=== PATIENT | male | born 1960 | race Caucasian/White ===

== ENCOUNTER 2021-06-14 12:16 | Inpatient (IN) ==
[2021-06-14 12:40] LABS: Basophils # (auto) 0.02 K/uL (0-0.2); Basophils % (auto) 0.2 %; Eosinophils # (auto) 0.07 K/uL (0-0.5); Eosinophils % (auto) 0.8 %; Hematocrit (blood only) 43.6 % (42-52); Hemoglobin 14.6 g/dL (14.0-18.0); Immature Granulocytes # (auto) 0.04 K/uL (0.00-0.02); Immature Granulocytes % (auto) 0.4 %; Lymphocytes # (auto) 2.95 K/uL (1.2-3.4); Lymphocytes % (auto) 32.6 %; Mean Corpuscular Hemoglobin 30.2 pg (25-34); Mean Corpuscular Hgb Conc 33.5 g/dL (32-36); Mean Corpuscular Volume 90.1 fL (80-100); Mean Platelet Volume 9.4 fL (7.4-10.4); Monocytes % (auto) 7.7 %; Neutrophils # (auto) 5.26 K/uL (1.4-6.5); Neutrophils % (auto) 58.3 %; Platelet Count 253 K/uL (130-400); RDW Coefficient of Variation 13.7 % (11.5-14.5); RDW Standard Deviation 45.1 fL (36.4-46.3); Red Blood Count 4.84 M/uL (4.7-6.1); White Blood Count 9.04 K/uL (4.8-10.8)
[2021-06-14 12:53] LABS: INR 1.1 (0.9-1.1); Partial Thromboplastin Ratio 0.9; Partial Thromboplastin Time 25.9 Seconds (21.0-31.0); Prothrombin Time 12.1 Seconds (9.0-12.0)
[2021-06-14 13:00] LABS: Alanine Aminotransferase 53 U/L (7-52); Albumin Globulin Ratio 1.8 (0.9-2); Albumin Level 4.3 gm/dl (3.4-5.0); Alkaline Phosphatase 93 U/L (34-104); Anion Gap 8 (3-11); Aspartate Aminotransferase 42 U/L (13-39); BUN Creatinine Ratio 20.3 (10-20); Bilirubin,Total 1.1 mg/dl (0.2-1.0); Blood Urea Nitrogen 15 mg/dl (6-23); Carbon Dioxide 24 mmol/L (21-32); Chloride 107 mmol/L (98-107); Globulin 2.4 gm/dl (2.5-4.0); Glucose 101 mg/dl (70-99(Fasting)); Potassium 3.7 mmol/L (3.5-5.1); Sodium 139 mmol/L (136-145); Total Protein 6.7 gm/dl (6.0-8.3)
[2021-06-14 13:02] LABS: Troponin I < 0.03 ng/ml (0-0.04)
[2021-06-14] MEDS ORDERED: METOPROLOL TARTRATE 1 MG/ML VIAL IV PRN (13:45)
--- NOTE | 2021-06-14 13:54 | XRay Report ---
TWO VIEW CHEST CLINICAL HISTORY: Atypical chest pain. FINDINGS: PA and lateral chest radiographs are compared to study dated 05/16/2014. The heart is enlarg ed. Interstitial thickening and airspace opacities are seen throughout both lungs. There is no large pleural effusion or pneumothorax. The skeletal structures are osteopenic. The bony thorax appears int act. IMPRESSION: 1. Interstitial thickening and airspace opacities are seen throughout both lungs, suggesting an infec tious/inflammatory pneumonitis. Clinical correlation will be required and radiographic follow-up to [facility] is recommended. 2. Cardiomegaly. ACT 112: Negative or not required by law. Electronically signed by: Jef Arellano M.D. 06/14/2021 1:52 PM
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
[2021-06-14] MEDS ORDERED: ONDANSETRON INJ 2 MG/ML 2 ML VIAL IV PRN (16:07)
[2021-06-14] MEDS ORDERED: POTASSIUM CHLORIDE CRTAB 20 MEQ TABCR PO STA (16:38)
[2021-06-14] MEDS ORDERED: MAGNESIUM SULFATE / D5W 1 GM/100 ML BAG IV ONE (17:00)
[2021-06-14] MEDS ORDERED: METOPROLOL TARTRATE 25 MG TAB PO SCH (17:00)
[2021-06-14] MEDS: FUROSEMIDE INJ 20 MG/2 ML VIAL IV SCH (17:49)
[2021-06-14] MEDS ORDERED: ALBUMIN 25% 12.5 GM/50 ML VIAL IV ONE (19:45)
[2021-06-14] MEDS ORDERED: DIGOXIN 250 MCG in SYRINGE 9 ML IV ONE (20:00)
[2021-06-14] MEDS: METOPROLOL TARTRATE 25 MG TAB PO SCH (20:06)
[2021-06-14] MEDS: HEPARIN SOD 5,000 UNIT/0.5 ML VIAL SQ SCH (20:06)
--- NOTE | 2021-06-14 21:38 | Electrocardiogram Report ---
Test Reason : Blood Pressure : / mmHG Vent. Rate : 130 BPM Atrial Rate : 107 BPM P-R Int : 000 ms QRS Dur : 114 ms QT Int : 348 ms P-R-T Axes : 000 056 -22 degrees QTc Int : 512 ms Atrial fibrillation with rapid ventricular response with premature ventricular or aberrantly conducte d complexes Right bundle branch block Inferior infarct , age undetermined Abnormal ECG No previous ECGs available Confirmed by Magno Lee ([id number]) on 06/14/2021 9:38:40 PM Referred By: Confirmed By:Magno Lee
[2021-06-15 06:15] LABS: Hematocrit (blood only) 41.3 % (42-52); Mean Corpuscular Hemoglobin 30.5 pg (25-34); Mean Corpuscular Hgb Conc 33.9 g/dL (32-36); Mean Platelet Volume 9.4 fL (7.4-10.4); Platelet Count 229 K/uL (130-400); RDW Coefficient of Variation 13.4 % (11.5-14.5); RDW Standard Deviation 44.2 fL (36.4-46.3); Red Blood Count 4.59 M/uL (4.7-6.1)
[2021-06-15 06:39] LABS: Albumin Globulin Ratio 1.9 (0.9-2); BUN Creatinine Ratio 22.1 (10-20); Bilirubin,Total 1.2 mg/dl (0.2-1.0); Calcium 8.2 mg/dl (8.5-10.1); Chol HDL Ratio 3.6 (0-5); Creatinine Clr Calc Pharmacy 86.5 ml/min; Est GFR (African American) 115.1 ml/min; Est GFR (Non-African American) 99.3 ml/min; Globulin 2.1 gm/dl (2.5-4.0); Magnesium 2.2 mg/dl (1.7-2.4); Phosphorus 3.1 mg/dl (2.5-4.9); Potassium 3.8 mmol/L (3.5-5.1); Total Protein 6.1 gm/dl (6.0-8.3)
[2021-06-15 07:57] LABS: Estimated Average Glucose 117 mg/dl; Hemoglobin A1C 5.7 % (4.5-5.6)
[2021-06-15] MEDS ORDERED: STAT IV Infusion **Titration per Protocol STA (08:07)
[2021-06-15] MEDS: HEPARIN SOD 5,000 UNIT/0.5 ML VIAL SQ SCH (08:12)
[2021-06-15] MEDS: METOPROLOL TARTRATE 25 MG TAB PO SCH (08:12)
[2021-06-15] MEDS: MAGNESIUM OXIDE 400 MG TAB PO SCH (08:13)
[2021-06-15] MEDS ORDERED: dilTIAZem HCL 125 MG in DEXTROSE 5% 100 ML IV SCH (08:30)
[2021-06-15] MEDS ORDERED: POTASSIUM CHLORIDE CRTAB 20 MEQ TABCR PO SCH (09:00)
[2021-06-15] MEDS: FUROSEMIDE INJ 20 MG/2 ML VIAL IV SCH ×2 (09:56→17:15)
[2021-06-15] MEDS: POTASSIUM CHLORIDE CRTAB 20 MEQ TABCR PO SCH ×3 (09:57→20:48)
[2021-06-15] MEDS ORDERED: METOPROLOL TARTRATE 25 MG TAB PO STA (11:55)
--- NOTE | 2021-06-15 12:02 | Cardiology Progress Note ---
Date of Service June 15, 2021 Assessment & Plan (1) Atrial fibrillation with RVR: (2) Infiltrative cardiomyopathy: Plan: The patient remains in atrial fibrillation with high heart rates. I will increase his metoprolol to 50 mg twice daily. Labs are still pending. Admission and Anticipated Discharge Date Admission Date: June 14, 2021 Subjective The patient states he feels better since being admitted to the hospital. Review of Systems Review of Systems: Review of Systems: See HPI for pertinent positives. All other 10 point review of systems are negative. Physical Exam Physical Exam: General: no acute distress and stated age Head: normocephalic, no masses, lesions, tenderness or abnormalities Eyes: conjunctiva are pink and non-injected, sclera clear Neck: supple, no adenopathy, no bruits, normal jugular venous pulse, no hepatojugular reflux Chest: normal shape and normal respiratory effort Lungs: clear to auscultation and percussion Cardiac Exam: - irregular rate & rhythm, no murmurs gallops or rubs - normal S1, normal S2 Pulses: 2(+) throughout Abdomen: abdomen soft, non-tender, no abnormal masses and no hepatosplenomegaly Musculoskeletal: no gait disturbance, no joint inflammation, no deforming arthritis Extremities: no edema and no cyanosis Neuro: grossly normal exam Results & Data ([facility]) Vital Signs (Past 12 Hours) Vital Signs Temp Pulse Resp BP BP Pulse Ox 06/15/21 11:52 36.7 C 84 18 112/74 93 06/15/21 07:57 36.8 C 75 18 130/89 95 06/15/21 03:54 36.9 C 109 H 18 124/80 95 Laboratory Results Laboratory Results - last 24 hr 06/14/21 06/14/21 06/14/21 12:30 12:30 12:30 WBC 9.04 RBC 4.84 Hgb 14.6 Hct 43.6 MCV 90.1 MCH 30.2 MCHC 33.5 RDW Std Deviation 45.1 RDW Coeff of Noni 13.7 Plt Count 253 MPV 9.4 Immature Gran % (Auto) 0.4 Neut % (Auto) 58.3 Lymph % (Auto) 32.6 [place] % (Auto) 7.7 Eos % (Auto) 0.8 Baso % (Auto) 0.2 Neut # (Auto) 5.26 Lymph # (Auto) 2.95 [place] # (Auto) 0.70 H Eos # (Auto) 0.07 Baso # (Auto) 0.02 Immature Gran # (Auto) 0.04 H PT 12.1 H INR 1.1 APTT 25.9 PTT Ratio 0.9 Sodium 139 Potassium 3.7 Chloride 107 Carbon Dioxide 24 Anion Gap 8 BUN 15 Creatinine 0.74 Est Cr Clr Drug Dosing Not Reportable Est GFR ( Amer) 117.0 Est GFR (Non-Af Amer) 101.0 BUN/Creatinine Ratio 20.3 H Glucose 101 H Estimat Average Glucose Hemoglobin A1c Calcium 9.0 Phosphorus Magnesium Total Bilirubin 1.1 H AST 42 H ALT 53 H Alkaline Phosphatase 93 Troponin I < 0.03 B-Natriuretic Peptide Total Protein 6.7 Total Protein (PEP) Albumin 4.3 Albumin (PEP) Globulin 2.4 L Albumin/Globulin Ratio 1.8 Ecxgv-3-Vwojaalri Iiixq-9-Ehizzjspe Hvsp-3-Ioqbawra Beav-5-Qiljhove Gamma Globulins Monoclonal Peak 3 Ser Monoclonl Protein Ser Monoclonal Prot 2 PEP Interpretation Triglycerides Cholesterol LDL Cholesterol, Calc VLDL Cholesterol, Calc HDL Cholesterol Cholesterol/HDL Ratio TSH Free [place] LC, Quant Free Lambda LC, Quant Free [place]/Lambda Ratio SARS-CoV-2, RNA, NAAT 06/14/21 06/14/21 06/14/21 13:57 13:57 13:57 WBC RBC Hgb Hct MCV MCH MCHC RDW Std Deviation RDW Coeff of Noni Plt Count MPV Immature Gran % (Auto) Neut % (Auto) Lymph % (Auto) [place] % (Auto) Eos % (Auto) Baso % (Auto) Neut # (Auto) Lymph # (Auto) [place] # (Auto) Eos # (Auto) Baso # (Auto) Immature Gran # (Auto) PT INR APTT PTT Ratio Sodium Potassium Chloride Carbon Dioxide Anion Gap BUN Creatinine Est Cr Clr Drug Dosing Est GFR ( Amer) Est GFR (Non-Af Amer) BUN/Creatinine Ratio Glucose Estimat Average Glucose Hemoglobin A1c Calcium Phosphorus Magnesium 1.9 Total Bilirubin AST ALT Alkaline Phosphatase Troponin I B-Natriuretic Peptide 333 H Total Protein Total Protein (PEP) Albumin Albumin (PEP) Globulin Albumin/Globulin Ratio Trzjh-5-Sjrkpstwc Keday-3-Hxksoybmt Wtvt-8-Fonsafwr Pgdh-7-Wvgtcmmo Gamma Globulins Monoclonal Peak 3 Ser Monoclonl Protein Ser Monoclonal Prot 2 PEP Interpretation Triglycerides Cholesterol LDL Cholesterol, Calc VLDL Cholesterol, Calc HDL Cholesterol Cholesterol/HDL Ratio TSH 1.861 Free [place] LC, Quant Free Lambda LC, Quant Free [place]/Lambda Ratio SARS-CoV-2, RNA, NAAT 06/14/21 06/14/21 06/15/21 13:57 14:46 05:52 WBC 6.90 RBC 4.59 L Hgb 14.0 Hct 41.3 L MCV 90.0 MCH 30.5 MCHC 33.9 RDW Std Deviation 44.2 RDW Coeff of Noni 13.4 Plt Count 229 MPV 9.4 Immature Gran % (Auto) Neut % (Auto) Lymph % (Auto) [place] % (Auto) Eos % (Auto) Baso % (Auto) Neut # (Auto) Lymph # (Auto) [place] # (Auto) Eos # (Auto) Baso # (Auto) Immature Gran # (Auto) PT INR APTT PTT Ratio Sodium Potassium Chloride Carbon Dioxide Anion Gap BUN Creatinine Est Cr Clr Drug Dosing Est GFR ( Amer) Est GFR (Non-Af Amer) BUN/Creatinine Ratio Glucose Estimat Average Glucose Hemoglobin A1c Calcium Phosphorus Magnesium Total Bilirubin AST ALT Alkaline Phosphatase Troponin I B-Natriuretic Peptide Total Protein Total Protein (PEP) Pending Albumin Albumin (PEP) Pending Globulin Albumin/Globulin Ratio Eylpf-3-Wauxujqrh Pending Tgpio-3-Jngohzyet Pending Knrg-4-Skrpacbw Pending Imyw-8-Surbisjq Pending Gamma Globulins Pending Monoclonal Peak 3 Pending Ser Monoclonl Protein Pending Ser Monoclonal Prot 2 Pending PEP Interpretation Pending Triglycerides Cholesterol LDL Cholesterol, Calc VLDL Cholesterol, Calc HDL Cholesterol Cholesterol/HDL Ratio TSH Free [place] LC, Quant Pending Free Lambda LC, Quant Pending Free [place]/Lambda Ratio Pending SARS-CoV-2, RNA, NAAT NEGATIVE 06/15/21 06/15/21 05:52 05:52 WBC RBC Hgb Hct MCV MCH MCHC RDW Std Deviation RDW Coeff of Noni Plt Count MPV Immature Gran % (Auto) Neut % (Auto) Lymph % (Auto) [place] % (Auto) Eos % (Auto) Baso % (Auto) Neut # (Auto) Lymph # (Auto) [place] # (Auto) Eos # (Auto) Baso # (Auto) Immature Gran # (Auto) PT INR APTT PTT Ratio Sodium 139 Potassium 3.8 Chloride 107 Carbon Dioxide 24 Anion Gap 8 BUN 17 Creatinine 0.77 Est Cr Clr Drug Dosing 86.5 Est GFR ( Amer) 115.1 Est GFR (Non-Af Amer) 99.3 BUN/Creatinine Ratio 22.1 H Glucose 80 Estimat Average Glucose 117 Hemoglobin A1c 5.7 H Calcium 8.2 L Phosphorus 3.1 Magnesium 2.2 Total Bilirubin 1.2 H AST 37 ALT 48 Alkaline Phosphatase 83 Troponin I B-Natriuretic Peptide Total Protein 6.1 Total Protein (PEP) Albumin 4.0 Albumin (PEP) Globulin 2.1 L Albumin/Globulin Ratio 1.9 Rsqlj-5-Fqamcpflo Panfc-6-Zzgveqmyy Xlji-9-Cxblfyyy Fimq-2-Qxasfnvp Gamma Globulins Monoclonal Peak 3 Ser Monoclonl Protein Ser Monoclonal Prot 2 PEP Interpretation Triglycerides 77 Cholesterol 127 LDL Cholesterol, Calc 77 VLDL Cholesterol, Calc 15 HDL Cholesterol 35 Cholesterol/HDL Ratio 3.6 TSH Free [place] LC, Quant Free Lambda LC, Quant Free [place]/Lambda Ratio SARS-CoV-2, RNA, NAAT Medications Administered Current Inpatient Medications Acetaminophen (Acetaminophen 325 Mg Tab) 650 mg PO Q4H PRN PRN Reason: Moderate Pain Stop: 07/14/21 16:06 Furosemide (Furosemide Inj 20 Mg/2 Ml Vial) 20 mg IV BID17 [facility] Stop: 07/14/21 16:59 Last Admin: 06/15/21 09:56 Dose: 20 mg Documented by: Heparin Sodium (Porcine) (Heparin Sod 5,000 Unit/0.5 Ml Vial) 5,000 units SQ Q12 [facility] Stop: 07/14/21 20:59 Last Admin: 06/15/21 08:12 Dose: 5,000 units Documented by: Diltiazem HCl 125 mg/ Dextrose 125 mls @ 5 mls/hr IV .Q24H [facility]; Protocol Stop: 07/15/21 08:29 Magnesium Oxide (Magnesium Oxide 400 Mg Tab) 400 mg PO QAM [facility] Stop: 06/18/21 08:59 Last Admin: 06/15/21 08:13 Dose: 400 mg Documented by: Metoprolol Tartrate (Metoprolol Tartrate 50 Mg Tab) 50 mg PO BID [facility] Stop: 07/15/21 20:59 Ondansetron HCl (Ondansetron Inj 2 Mg/Ml 2 Ml Vial) 4 mg IV Q4H PRN PRN Reason: Nausea And Vomiting Stop: 07/14/21 16:06 Potassium Chloride (Potassium Chloride Crtab 20 Meq Tabcr) 20 meq PO TID [facility] Stop: 06/18/21 08:59 Last Admin: 06/15/21 09:57 Dose: 20 meq Documented by:
[2021-06-15] MEDS ORDERED: COUGH DROP (SUGAR FREE) LOZ 24 LOZ/1 BOX BUCCAL PRN (13:40)
--- NOTE | 2021-06-15 15:52 | Hospitalist Progress Note ---
Date of Service June 15, 2021 Assessment & Plan Plan: New onset A fib with RVR -Appreciate cardiology input, avoid digoxin, amiodarone and cardizem. Defer to cardiology whether AC is indicated -Will continue metoprolol--> increased to 50mg BID -keep K>4, Mg>2 Acute systolic CHF -results of TTE noted -lasix 20mg IV BID -Further management per Cardiology, he will eventually need an ischemic workup and biopsy once euvolemic (this will need to be done at [place]) DVT ppx -start SQ lovenox Admission and Anticipated Discharge Date Admission Date: June 14, 2021 Subjective Feels better Diuresing well Remains in A fib, HR improved --sustaining around 90-110s and goes up to 140s briefly at times Physical Exam Physical Exam: no acute distress, non toxic, observed ambulating in room with no difficulty Respiratory: breathing comfortably on room air, no wheezing/rhonchi, diminished at base Cardiovascular: Irregular, tachycardic Gastrointestinal (Abdomen): Improved abdominal girth, soft,non tender Musculoskeletal: Improved lower extremity edema Results & Data Results & Data ([facility]) Vital Signs (Past 12 Hours) Vital Signs Temp Pulse Resp BP BP Pulse Ox 06/15/21 11:52 36.7 C 84 18 112/74 93 06/15/21 07:57 36.8 C 75 18 130/89 95 06/15/21 03:54 36.9 C 109 H 18 124/80 95 Laboratory Results Short CBC 06/15/21 Range/Units 05:52 WBC 6.90 (4.8-10.8) K/uL Hgb 14.0 (14.0-18.0) g/dL Hct 41.3 L (42-52) % Plt Count 229 (130-400) K/uL BMP 06/15/21 05:52 Sodium 139 Potassium 3.8 Chloride 107 Carbon Dioxide 24 BUN 17 Creatinine 0.77 Glucose 80 Calcium 8.2 L Liver Function 06/15/21 Range/Units 05:52 Total Bilirubin 1.2 H (0.2-1.0) mg/dl AST 37 (13-39) U/L ALT 48 (7-52) U/L Alkaline Phosphatase 83 (34-104) U/L Albumin 4.0 (3.4-5.0) gm/dl Medications Administered Current Inpatient Medications Acetaminophen (Acetaminophen 325 Mg Tab) 650 mg PO Q4H PRN PRN Reason: Moderate Pain Stop: 07/14/21 16:06 Furosemide (Furosemide Inj 20 Mg/2 Ml Vial) 20 mg IV BID17 [facility] Stop: 07/14/21 16:59 Last Admin: 06/15/21 09:56 Dose: 20 mg Documented by: Heparin Sodium (Porcine) (Heparin Sod 5,000 Unit/0.5 Ml Vial) 5,000 units SQ Q12 [facility] Stop: 07/14/21 20:59 Last Admin: 06/15/21 08:12 Dose: 5,000 units Documented by: Magnesium Oxide (Magnesium Oxide 400 Mg Tab) 400 mg PO QAM [facility] Stop: 06/18/21 08:59 Last Admin: 06/15/21 08:13 Dose: 400 mg Documented by: Menthol (Cough Drop (Sugar Free) Tarah 24 Tarah/1 Box) 1 tarha [place] TID PRN PRN Reason: Sore Throat Stop: 07/15/21 13:39 Metoprolol Tartrate (Metoprolol Tartrate 50 Mg Tab) 50 mg PO BID [facility] Stop: 07/15/21 20:59 Ondansetron HCl (Ondansetron Inj 2 Mg/Ml 2 Ml Vial) 4 mg IV Q4H PRN PRN Reason: Nausea And Vomiting Stop: 07/14/21 16:06 Potassium Chloride (Potassium Chloride Crtab 20 Meq Tabcr) 20 meq PO TID [facility] Stop: 06/18/21 08:59 Last Admin: 06/15/21 14:51 Dose: 20 meq Documented by:
[2021-06-15] MEDS ORDERED: Heparin IV Adult Wt-Based Standard *NO* Bolus Protocol IV ONE (17:55)
[2021-06-15] MEDS ORDERED: HEPARIN 25000 UNIT/500 ML D5W IV ONE (18:36)
[2021-06-15] MEDS: ACETAMINOPHEN 325 MG TAB PO PRN (19:29)
[2021-06-15] MEDS: HEPARIN SODIUM/DEXTROSE 25,000 UNITS/500 ML BAG IV SCH (20:45)
[2021-06-15] MEDS: METOPROLOL TARTRATE 50 MG TAB PO SCH (20:47)
[2021-06-16 02:47] LABS: Hematocrit (blood only) 44.1 % (42-52); Hemoglobin 15.5 g/dL (14.0-18.0); Mean Corpuscular Hemoglobin 31.1 pg (25-34); Mean Corpuscular Hgb Conc 35.1 g/dL (32-36); Mean Corpuscular Volume 88.4 fL (80-100); Mean Platelet Volume 9.1 fL (7.4-10.4); Platelet Count 260 K/uL (130-400); RDW Coefficient of Variation 13.4 % (11.5-14.5); RDW Standard Deviation 43.6 fL (36.4-46.3); Red Blood Count 4.99 M/uL (4.7-6.1); White Blood Count 7.35 K/uL (4.8-10.8)
[2021-06-16 03:12] LABS: Albumin Globulin Ratio 1.6 (0.9-2); Albumin Level 4.2 gm/dl (3.4-5.0); BUN Creatinine Ratio 26.3 (10-20); Bilirubin,Total 0.9 mg/dl (0.2-1.0); Creatinine Clr Calc Pharmacy 83.3 ml/min; Est GFR (African American) 113.3 ml/min; Est GFR (Non-African American) 97.8 ml/min; Globulin 2.6 gm/dl (2.5-4.0); Potassium 4.5 mmol/L (3.5-5.1); Total Protein 6.8 gm/dl (6.0-8.3)
[2021-06-16 03:22] LABS: Partial Thromboplastin Time 55.5 Seconds (21.0-31.0)
[2021-06-16] MEDS: MAGNESIUM OXIDE 400 MG TAB PO SCH (08:17)
[2021-06-16] MEDS: METOPROLOL TARTRATE 50 MG TAB PO SCH (08:17)
[2021-06-16] MEDS: POTASSIUM CHLORIDE CRTAB 20 MEQ TABCR PO SCH (08:18)
[2021-06-16] MEDS: FUROSEMIDE INJ 20 MG/2 ML VIAL IV SCH ×2 (08:21→16:32)
[2021-06-16] MEDS ORDERED: ENOXAPARIN INJ 40 MG/0.4 ML SYR SQ SCH (09:00)
--- NOTE | 2021-06-16 09:57 | Cardiology Progress Note ---
Date of Service June 16, 2021 Assessment & Plan (1) Atrial fibrillation with RVR: (2) Infiltrative cardiomyopathy: Plan: I believe the patient is currently out of heart failure. His heart rates are also under better control with increased dose of metoprolol. The patient will need long-term anticoagulation. For him the best would be a NOAC but it might be quite expensive for him. I will have social work look into the cost and if necessary will have to switch him over to Coumadin. Lab work is still pending. We can continue the work-up as an outpatient. I do not believe that we will be able to cardiovert him into normal sinus rhythm with any short or long-term success. His atrium are very dilated from the cardiomyopathy and its unlikely that he will maintain sinus rhythm. Admission and Anticipated Discharge Date Admission Date: June 14, 2021 Subjective Patient with no new cardiac complaints today. Review of Systems Review of Systems: Review of Systems: See HPI for pertinent positives. All other 10 point review of systems are negative. Physical Exam Physical Exam: General: no acute distress and stated age Head: normocephalic, no masses, lesions, tenderness or abnormalities Eyes: conjunctiva are pink and non-injected, sclera clear Neck: supple, no adenopathy, no bruits, normal jugular venous pulse, no hepatojugular reflux Chest: normal shape and normal respiratory effort Lungs: clear to auscultation and percussion Cardiac Exam: - irregular rate & rhythm, no murmurs gallops or rubs - normal S1, normal S2 Pulses: 2(+) throughout Abdomen: abdomen soft, non-tender, no abnormal masses and no hepatosplenomegaly Musculoskeletal: no gait disturbance, no joint inflammation, no deforming arthritis Extremities: no edema and no cyanosis Neuro: grossly normal exam Results & Data ([facility]) Vital Signs (Past 12 Hours) Vital Signs Temp Pulse Pulse Resp BP Pulse Ox 06/16/21 08:28 36.7 C 78 18 109/71 96 06/16/21 03:58 36.6 C 98 H 16 114/76 91 06/15/21 23:19 37.0 C 76 18 118/77 93 06/15/21 22:00 94 H Laboratory Results Laboratory Results - last 24 hr 06/15/21 06/16/21 06/16/21 17:00 02:35 02:35 WBC 7.35 RBC 4.99 Hgb 15.5 Hct 44.1 MCV 88.4 MCH 31.1 MCHC 35.1 RDW Std Deviation 43.6 RDW Coeff of Noni 13.4 Plt Count 260 MPV 9.1 APTT PTT Ratio Sodium 136 Potassium 4.5 Chloride 103 Carbon Dioxide 25 Anion Gap 8 BUN 21 Creatinine 0.80 Est Cr Clr Drug Dosing 83.3 Est GFR ( Amer) 113.3 Est GFR (Non-Af Amer) 97.8 BUN/Creatinine Ratio 26.3 H Glucose 102 H Calcium 9.0 Total Bilirubin 0.9 AST 37 ALT 50 Alkaline Phosphatase 89 Total Protein 6.8 Albumin 4.2 Globulin 2.6 Albumin/Globulin Ratio 1.6 Ur Creatinine 24 Hour Pending Ur Total Protein 24 Hr Pending Protein/Creat Ratio 24h Pending Urine Albumin (%) Pending U Lcebk-0-Lybvdmqb (%) Pending U Ptlbf-7-Gbyjdvhk (%) Pending U Beta Globulin (%) Pending U Gamma Globulin (%) Pending U Abnormal Prot Band 1 Pending U Abnormal Prot Band 2 Pending U Abnormal Prot Band 3 Pending Urine PEP Interpret Pending 06/16/21 02:35 WBC RBC Hgb Hct MCV MCH MCHC RDW Std Deviation RDW Coeff of Noni Plt Count MPV APTT 55.5 H* PTT Ratio 2.0 Sodium Potassium Chloride Carbon Dioxide Anion Gap BUN Creatinine Est Cr Clr Drug Dosing Est GFR ( Amer) Est GFR (Non-Af Amer) BUN/Creatinine Ratio Glucose Calcium Total Bilirubin AST ALT Alkaline Phosphatase Total Protein Albumin Globulin Albumin/Globulin Ratio Ur Creatinine 24 Hour Ur Total Protein 24 Hr Protein/Creat Ratio 24h Urine Albumin (%) U Ozjsg-8-Ircvpajp (%) U Bcmyp-7-Dcgfqxnp (%) U Beta Globulin (%) U Gamma Globulin (%) U Abnormal Prot Band 1 U Abnormal Prot Band 2 U Abnormal Prot Band 3 Urine PEP Interpret Medications Administered Current Inpatient Medications Acetaminophen (Acetaminophen 325 Mg Tab) 650 mg PO Q4H PRN PRN Reason: Moderate Pain Stop: 07/14/21 16:06 Last Admin: 06/15/21 19:29 Dose: 650 mg Documented by: Furosemide (Furosemide Inj 20 Mg/2 Ml Vial) 20 mg IV BID17 [facility] Stop: 07/14/21 16:59 Last Admin: 06/16/21 08:21 Dose: 20 mg Documented by: Heparin Sodium/Dextrose (Heparin Sodium/Dextrose) 25,000 units in 500 mls @ 23 mls/hr IV .[id number] [facility]; Protocol Stop: 07/15/21 20:29 Last Admin: 06/15/21 20:45 Dose: 1,150 units/hr, 23 mls/hr Documented by: Magnesium Oxide (Magnesium Oxide 400 Mg Tab) 400 mg PO QAM [facility] Stop: 06/18/21 08:59 Last Admin: 06/16/21 08:17 Dose: 400 mg Documented by: Menthol (Cough Drop (Sugar Free) Tarah 24 [place]/1 Box) 1 tarah [place]CCAL TID PRN PRN Reason: Sore Throat Stop: 07/15/21 13:39 Metoprolol Succinate (Metoprolol Succ 50mg Ext Rel Tab) 50 mg PO BID [facility] Stop: 07/16/21 20:59 Ondansetron HCl (Ondansetron Inj 2 Mg/Ml 2 Ml Vial) 4 mg IV Q4H PRN PRN Reason: Nausea And Vomiting Stop: 07/14/21 16:06 Spironolactone (Spironolactone 12.5 Mg Tab) 12.5 mg PO BID [facility] Stop: 07/16/21 09:29
[2021-06-16] MEDS: SPIRONOLACTONE 12.5 MG TAB PO SCH ×2 (10:37→21:31)
[2021-06-16] MEDS ORDERED: COUGH DROP (SUGAR FREE) LOZ 24 LOZ/1 BOX BUCCAL PRN (14:56)
--- NOTE | 2021-06-16 14:56 | Hospitalist Progress Note ---
Date of Service June 16, 2021 Assessment & Plan (1) Atrial fibrillation with RVR: (2) Infiltrative cardiomyopathy: (3) CHF (congestive heart failure): Plan: New onset A fib with RVR- rate controlled on lopressor, continue. Monitor on tele. Cardio following- avoid digoxin, amiodarone and cardizem. Defer to cardiology whether AC is indicated - On heparin drip. Patient has no insurance, so DOAC not affordable. Will switch to coumadin if no further cardiac work up warranted in house- will discuss with cardio Acute systolic CHF, Infiltrative cardiomyopathy- OP echo with EF 45-49%, LA severely enlarged, RA moderately enlarged, moderate TR, mild PH. now euvolemic. s/p iv lasix. will change to po lasix. continue daily weight, I and Os. - Patient will likely need ischemic evaluation and cardiac biopsy. Will coordinate with cardio DVT prophylaxis- on heparin drip. will change to coumadin if no further inpatient cardiac work up planned. 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 He feels better. Complains of some throat discomfort with talking since yesterday but denies any dysphagia, dysphonia or dysarthria. Denies any allergies or postnasal drip. Denies any fever, chills, runny nose, cough, shortness of breath. Ambulating without i ssues. Physical Exam Physical Exam: General: sitting comfortably in bed, not in distress, on room air HEENT: EOMI, KATHLEEN, MMM Chest: Clear breath sounds bilaterally, no wheezes or crackles CVS: Regular rate and rhythm, normal heart sounds, no murmur Abdomen: Soft, non tender, not distended, normal bowel sounds Neuro: Awake, alert, oriented, conversing well, non focal Extremities: No cyanosis, clubbing or edema Results & Data Results & Data ([facility]) Vital Signs (Past 12 Hours) Vital Signs Temp Pulse Resp BP Pulse Ox 06/16/21 10:49 36.6 C 89 16 106/70 97 06/16/21 08:28 36.7 C 78 18 109/71 96 06/16/21 03:58 36.6 C 98 H 16 114/76 91 Laboratory Results Short CBC 06/16/21 Range/Units 02:35 WBC 7.35 (4.8-10.8) K/uL Hgb 15.5 (14.0-18.0) g/dL Hct 44.1 (42-52) % Plt Count 260 (130-400) K/uL BMP 06/16/21 02:35 Sodium 136 Potassium 4.5 Chloride 103 Carbon Dioxide 25 BUN 21 Creatinine 0.80 Glucose 102 H Calcium 9.0 Liver Function 06/16/21 Range/Units 02:35 Total Bilirubin 0.9 (0.2-1.0) mg/dl AST 37 (13-39) U/L ALT 50 (7-52) U/L Alkaline Phosphatase 89 (34-104) U/L Albumin 4.2 (3.4-5.0) gm/dl Medications Administered Current Inpatient Medications Acetaminophen (Acetaminophen 325 Mg Tab) 650 mg PO Q4H PRN PRN Reason: Moderate Pain Stop: 07/14/21 16:06 Last Admin: 06/15/21 19:29 Dose: 650 mg Documented by: Furosemide (Furosemide Inj 20 Mg/2 Ml Vial) 20 mg IV BID17 [facility] Stop: 07/14/21 16:59 Last Admin: 06/16/21 08:21 Dose: 20 mg Documented by: Heparin Sodium/Dextrose (Heparin Sodium/Dextrose) 25,000 units in 500 mls @ 23 mls/hr IV .[id number] [facility]; Protocol Stop: 07/15/21 20:29 Last Admin: 06/15/21 20:45 Dose: 1,150 units/hr, 23 mls/hr Documented by: Magnesium Oxide (Magnesium Oxide 400 Mg Tab) 400 mg PO QAM [facility] Stop: 06/18/21 08:59 Last Admin: 06/16/21 08:17 Dose: 400 mg Documented by: Menthol (Cough Drop (Sugar Free) Tarah 24 Tarah/1 Box) 1 tarah BUCCAL Q2H PRN PRN Reason: Sore Throat Stop: 07/16/21 14:55 Metoprolol Succinate (Metoprolol Succ 50mg Ext Rel Tab) 50 mg PO BID [facility] Stop: 07/16/21 20:59 Ondansetron HCl (Ondansetron Inj 2 Mg/Ml 2 Ml Vial) 4 mg IV Q4H PRN PRN Reason: Nausea And Vomiting Stop: 07/14/21 16:06 Spironolactone (Spironolactone 12.5 Mg Tab) 12.5 mg PO BID [facility] Stop: 07/16/21 09:29 Last Admin: 06/16/21 10:37 Dose: 12.5 mg Documented by: (1) CHF (congestive heart failure) Heart failure chronicity: acute Heart failure type: unspecified Qualified Code(s): I50.9 - Heart failure, unspecified
[2021-06-16] MEDS ORDERED: WARFARIN SOD 5 MG TAB PO SCH (16:00)
[2021-06-16] MEDS: WARFARIN SOD 10 MG TAB PO SCH (17:14)
[2021-06-16] MEDS: HEPARIN SODIUM/DEXTROSE 25,000 UNITS/500 ML BAG IV SCH (18:21)
[2021-06-16] MEDS: METOPROLOL SUCC 50MG EXT REL TAB PO SCH (21:31)
[2021-06-17 05:33] LABS: Basophils # (auto) 0.04 K/uL (0-0.2); Basophils % (auto) 0.7 %; Eosinophils # (auto) 0.26 K/uL (0-0.5); Eosinophils % (auto) 4.2 %; Hematocrit (blood only) 47.8 % (42-52); Hemoglobin 16.5 g/dL (14.0-18.0); Immature Granulocytes # (auto) 0.01 K/uL (0.00-0.02); Immature Granulocytes % (auto) 0.2 %; Lymphocytes % (auto) 39.2 %; Mean Corpuscular Hemoglobin 30.8 pg (25-34); Mean Corpuscular Hgb Conc 34.5 g/dL (32-36); Mean Corpuscular Volume 89.2 fL (80-100); Mean Platelet Volume 9.4 fL (7.4-10.4); Monocytes # (auto) 0.75 K/uL (0.11-0.59); Monocytes % (auto) 12.2 %; Neutrophils # (auto) 2.67 K/uL (1.4-6.5); Neutrophils % (auto) 43.5 %; Platelet Count 261 K/uL (130-400); RDW Coefficient of Variation 13.4 % (11.5-14.5); RDW Standard Deviation 43.4 fL (36.4-46.3); Red Blood Count 5.36 M/uL (4.7-6.1); White Blood Count 6.13 K/uL (4.8-10.8)
[2021-06-17 06:02] LABS: Albumin Globulin Ratio 1.6 (0.9-2); Albumin Level 4.2 gm/dl (3.4-5.0); BUN Creatinine Ratio 29.9 (10-20); Bilirubin,Total 0.7 mg/dl (0.2-1.0); Calcium 9.2 mg/dl (8.5-10.1); Creatinine Clr Calc Pharmacy 99.4 ml/min; Est GFR (African American) 121.9 ml/min; Est GFR (Non-African American) 105.2 ml/min; Globulin 2.6 gm/dl (2.5-4.0); Magnesium 2.5 mg/dl (1.7-2.4); Potassium 4.2 mmol/L (3.5-5.1); Total Protein 6.8 gm/dl (6.0-8.3)
[2021-06-17 06:09] LABS: INR 1.2 (0.9-1.1); Partial Thromboplastin Ratio 2.8; Prothrombin Time 12.9 Seconds (9.0-12.0)
[2021-06-17] MEDS: MAGNESIUM OXIDE 400 MG TAB PO SCH (08:40)
[2021-06-17] MEDS: SPIRONOLACTONE 12.5 MG TAB PO SCH ×2 (08:40→20:07)
[2021-06-17] MEDS: METOPROLOL SUCC 50MG EXT REL TAB PO SCH ×2 (08:40→20:07)
[2021-06-17] MEDS: FUROSEMIDE 20 MG TAB PO SCH ×2 (10:40→16:36)
[2021-06-17 13:29] LABS: Partial Thromboplastin Time 82.8 Seconds (21.0-31.0)
--- NOTE | 2021-06-17 14:40 | Cardiology Progress Note ---
Date of Service June 17, 2021 Assessment & Plan (1) Infiltrative cardiomyopathy: (2) Atrial fibrillation with RVR: Plan: The plan is to continue loading the patient with warfarin. Once his INR is above 1.5 I think we can start the discharge process. His heart rate is very well controlled on the metoprolol. He is now out of congestive heart failure on the diuretic and Aldactone. Labs are still pending. Admission and Anticipated Discharge Date Admission Date: June 14, 2021 Subjective I spoke with the patient's brother Ata who is very helpful and engaged. He also speaks to the patient every day and told me that he is feeling much improved. He was started on warfarin last night. Review of Systems Review of Systems: Review of Systems: See HPI for pertinent positives. All other 10 point review of systems are negative. Physical Exam Physical Exam: General: no acute distress and stated age Head: normocephalic, no masses, lesions, tenderness or abnormalities Eyes: conjunctiva are pink and non-injected, sclera clear Neck: supple, no adenopathy, no bruits, normal jugular venous pulse, no hepatojugular reflux Chest: normal shape and normal respiratory effort Lungs: clear to auscultation and percussion Cardiac Exam: - irregular rate & rhythm, no murmurs gallops or rubs - normal S1, normal S2 Pulses: 2(+) throughout Abdomen: abdomen soft, non-tender, no abnormal masses and no hepatosplenomegaly Musculoskeletal: no gait disturbance, no joint inflammation, no deforming arthritis Extremities: no edema and no cyanosis Neuro: grossly normal exam Results & Data ([facility]) Vital Signs (Past 12 Hours) Vital Signs Temp Pulse Pulse Resp BP Pulse Ox 06/17/21 11:34 36.6 C 87 14 108/71 95 06/17/21 07:19 91 H 06/17/21 07:09 36.7 C 82 16 108/76 97 06/17/21 04:23 36.5 C 69 17 111/77 97 Laboratory Results Laboratory Results - last 24 hr 06/17/21 06/17/21 06/17/21 05:20 05:20 05:20 WBC 6.13 RBC 5.36 Hgb 16.5 Hct 47.8 MCV 89.2 MCH 30.8 MCHC 34.5 RDW Std Deviation 43.4 RDW Coeff of Noni 13.4 Plt Count 261 MPV 9.4 Immature Gran % (Auto) 0.2 Neut % (Auto) 43.5 Lymph % (Auto) 39.2 [place] % (Auto) 12.2 Eos % (Auto) 4.2 Baso % (Auto) 0.7 Neut # (Auto) 2.67 Lymph # (Auto) 2.40 [place] # (Auto) 0.75 H Eos # (Auto) 0.26 Baso # (Auto) 0.04 Immature Gran # (Auto) 0.01 PT 12.9 H INR 1.2 H APTT 78.0 H* PTT Ratio 2.8 Sodium 137 Potassium 4.2 Chloride 102 Carbon Dioxide 28 Anion Gap 7 BUN 20 Creatinine 0.67 Est Cr Clr Drug Dosing 99.4 Est GFR ( Amer) 121.9 Est GFR (Non-Af Amer) 105.2 BUN/Creatinine Ratio 29.9 H Glucose 96 Calcium 9.2 Magnesium 2.5 H Total Bilirubin 0.7 AST 31 ALT 43 Alkaline Phosphatase 90 Total Protein 6.8 Albumin 4.2 Globulin 2.6 Albumin/Globulin Ratio 1.6 06/17/21 12:33 WBC RBC Hgb Hct MCV MCH MCHC RDW Std Deviation RDW Coeff of Noni Plt Count MPV Immature Gran % (Auto) Neut % (Auto) Lymph % (Auto) [place] % (Auto) Eos % (Auto) Baso % (Auto) Neut # (Auto) Lymph # (Auto) [place] # (Auto) Eos # (Auto) Baso # (Auto) Immature Gran # (Auto) PT INR APTT 82.8 H* PTT Ratio 3.0 Sodium Potassium Chloride Carbon Dioxide Anion Gap BUN Creatinine Est Cr Clr Drug Dosing Est GFR ( Amer) Est GFR (Non-Af Amer) BUN/Creatinine Ratio Glucose Calcium Magnesium Total Bilirubin AST ALT Alkaline Phosphatase Total Protein Albumin Globulin Albumin/Globulin Ratio Medications Administered Current Inpatient Medications Acetaminophen (Acetaminophen 325 Mg Tab) 650 mg PO Q4H PRN PRN Reason: Moderate Pain Stop: 07/14/21 16:06 Last Admin: 06/15/21 19:29 Dose: 650 mg Documented by: Furosemide (Furosemide 20 Mg Tab) 20 mg PO BID17 [facility] Stop: 07/17/21 08:59 Last Admin: 06/17/21 10:40 Dose: 20 mg Documented by: Heparin Sodium/Dextrose (Heparin Sodium/Dextrose) 25,000 units in 500 mls @ 21 mls/hr IV .[id number] [facility]; Protocol Stop: 07/15/21 20:29 Last Titration: 06/17/21 13:57 Dose: 1,050 units/hr, 21 mls/hr Documented by: Magnesium Oxide (Magnesium Oxide 400 Mg Tab) 400 mg PO QAM [facility] Stop: 06/18/21 08:59 Last Admin: 06/17/21 08:40 Dose: 400 mg Documented by: Menthol (Cough Drop (Sugar Free) Tarah 24 Tarah/1 Box) 1 tarah BUCCAL Q2H PRN PRN Reason: Sore Throat Stop: 07/16/21 14:55 Metoprolol Succinate (Metoprolol Succ 50mg Ext Rel Tab) 50 mg PO BID [facility] Stop: 07/16/21 20:59 Last Admin: 06/17/21 08:40 Dose: 50 mg Documented by: Ondansetron HCl (Ondansetron Inj 2 Mg/Ml 2 Ml Vial) 4 mg IV Q4H PRN PRN Reason: Nausea And Vomiting Stop: 07/14/21 16:06 Spironolactone (Spironolactone 12.5 Mg Tab) 12.5 mg PO BID [facility] Stop: 07/16/21 09:29 Last Admin: 06/17/21 08:40 Dose: 12.5 mg Documented by: Warfarin Sodium (Warfarin Sod 10 Mg Tab) 10 mg PO DAILY@1600 [facility] Stop: 07/16/21 15:59 Last Admin: 06/16/21 17:14 Dose: 10 mg Documented by:
--- NOTE | 2021-06-17 15:52 | Hospitalist Progress Note ---
Date of Service June 17, 2021 Assessment & Plan (1) Atrial fibrillation with RVR: (2) Infiltrative cardiomyopathy: (3) CHF (congestive heart failure): Plan: 61-year-old Indonesian speaking male, uninsured, presented to the ED on 06/14 with shortness of breath, orthopnea and abdominal bloating for about 3 weeks. Found to have Afib with RVR along with acute systolic CHF/infiltrative cardiomyopathy. New onset A fib with RVR- rate controlled on lopressor, continue. Continue tele in house. Recommended DOAC but patient has no insurance and DOAC is unaffordable. Started on coumadin 06/16 bridging heparin drip. Cardio following- avoid digoxin, amiodarone and cardizem. Acute systolic CHF, Infiltrative cardiomyopathy- OP echo with EF 45-49%, LA severely enlarged, RA moderately enlarged, moderate TR, mild PH. now euvolemic. s/p iv lasix. changed to po lasix. continue daily weight, I and Os. - Discussed with cardiology- they are planning for further work up including ischemic evaluation and biopsy as outpatient. DVT prophylaxis- on heparin drip with coumadin. INR 1.2 today Dispo- Anticipate discharge in 2-3 days once INR reasonable Admission and Anticipated Discharge Date Admission Date: June 14, 2021 Subjective Feeling better. Denies any new issues. Throat discomfort is better today. He feels his belly looks good now. Denies any shortness of breath, chest pain, palpitations, lightheadedness. Looks euvolemic. States good diuresis Physical Exam Physical Exam: General: Sitting comfortably in bed, not in distress, on room air HEENT: EOMI, KATHLEEN, MMM Chest: Clear breath sounds bilaterally, no wheezes or crackles CVS: irregular rate and rhythm, normal heart sounds, no murmur Abdomen: Soft, non tender, not distended, normal bowel sounds Neuro: Awake, alert, oriented, conversing well, non focal Extremities: No cyanosis, clubbing or edema Results & Data Results & Data ([facility]) Vital Signs (Past 12 Hours) Vital Signs Temp Pulse Pulse Resp BP Pulse Ox 06/17/21 15:29 36.8 C 79 17 108/72 95 06/17/21 11:34 36.6 C 87 14 108/71 95 06/17/21 07:19 91 H 06/17/21 07:09 36.7 C 82 16 108/76 97 06/17/21 04:23 36.5 C 69 17 111/77 97 Laboratory Results Short CBC 06/17/21 Range/Units 05:20 WBC 6.13 (4.8-10.8) K/uL Hgb 16.5 (14.0-18.0) g/dL Hct 47.8 (42-52) % Plt Count 261 (130-400) K/uL BMP 06/17/21 05:20 Sodium 137 Potassium 4.2 Chloride 102 Carbon Dioxide 28 BUN 20 Creatinine 0.67 Glucose 96 Calcium 9.2 Liver Function 06/17/21 Range/Units 05:20 Total Bilirubin 0.7 (0.2-1.0) mg/dl AST 31 (13-39) U/L ALT 43 (7-52) U/L Alkaline Phosphatase 90 (34-104) U/L Albumin 4.2 (3.4-5.0) gm/dl Medications Administered Current Inpatient Medications Acetaminophen (Acetaminophen 325 Mg Tab) 650 mg PO Q4H PRN PRN Reason: Moderate Pain Stop: 07/14/21 16:06 Last Admin: 06/15/21 19:29 Dose: 650 mg Documented by: Furosemide (Furosemide 20 Mg Tab) 20 mg PO BID17 [facility] Stop: 07/17/21 08:59 Last Admin: 06/17/21 10:40 Dose: 20 mg Documented by: Heparin Sodium/Dextrose (Heparin Sodium/Dextrose) 25,000 units in 500 mls @ 21 mls/hr IV .[id number] [facility]; Protocol Stop: 07/15/21 20:29 Last Titration: 06/17/21 13:57 Dose: 1,050 units/hr, 21 mls/hr Documented by: Magnesium Oxide (Magnesium Oxide 400 Mg Tab) 400 mg PO QAM [facility] Stop: 06/18/21 08:59 Last Admin: 06/17/21 08:40 Dose: 400 mg Documented by: Menthol (Cough Drop (Sugar Free) Tarah 24 Tarah/1 Box) 1 tarah BUCCAL Q2H PRN PRN Reason: Sore Throat Stop: 07/16/21 14:55 Metoprolol Succinate (Metoprolol Succ 50mg Ext Rel Tab) 50 mg PO BID [facility] Stop: 07/16/21 20:59 Last Admin: 06/17/21 08:40 Dose: 50 mg Documented by: Ondansetron HCl (Ondansetron Inj 2 Mg/Ml 2 Ml Vial) 4 mg IV Q4H PRN PRN Reason: Nausea And Vomiting Stop: 07/14/21 16:06 Spironolactone (Spironolactone 12.5 Mg Tab) 12.5 mg PO BID [facility] Stop: 07/16/21 09:29 Last Admin: 06/17/21 08:40 Dose: 12.5 mg Documented by: Warfarin Sodium (Warfarin Sod 10 Mg Tab) 10 mg PO DAILY@1600 [facility] Stop: 07/16/21 15:59 Last Admin: 06/16/21 17:14 Dose: 10 mg Documented by: (1) CHF (congestive heart failure) Heart failure chronicity: acute Heart failure type: unspecified Qualified Code(s): I50.9 - Heart failure, unspecified
--- NOTE | 2021-06-17 15:54 | Hospitalist Progress Note ---
Date of Service June 17, 2021 Assessment & Plan (1) Atrial fibrillation with RVR: (2) Infiltrative cardiomyopathy: (3) CHF (congestive heart failure): Plan: 61-year-old Gabonese speaking male, uninsured, presented to the ED on 06/14 with shortness of breath, orthopnea and abdominal bloating for about 3 weeks. Found to have Afib with RVR along with acute systolic CHF/infiltrative cardiomyopathy. New onset A fib with RVR- rate controlled on lopressor, continue. Continue tele in house. Recommended DOAC but patient has no insurance and DOAC is unaffordable. Started on coumadin 06/16 bridging heparin drip. Cardio following- avoid digoxin, amiodarone and cardizem. Acute systolic CHF, Infiltrative cardiomyopathy- OP echo with EF 45-49%, LA severely enlarged, RA moderately enlarged, moderate TR, mild PH. now euvolemic. s/p iv lasix. changed to po lasix. continue daily weight, I and Os. - Discussed with cardiology- they are planning for further work up including ischemic evaluation and biopsy as outpatient. DVT prophylaxis- on heparin drip with coumadin. INR 1.2 today Dispo- Anticipate discharge in 2-3 days once INR reasonable Admission and Anticipated Discharge Date Admission Date: June 14, 2021 Physical Exam Physical Exam: General: Sitting comfortably in bed, not in distress, on room air HEENT: EOMI, KATHLEEN, MMM Chest: Clear breath sounds bilaterally, no wheezes or crackles CVS: irregular rate and rhythm, normal heart sounds, no murmur Abdomen: Soft, non tender, not distended, normal bowel sounds Neuro: Awake, alert, oriented, conversing well, non focal Extremities: No cyanosis, clubbing or edema Results & Data Results & Data ([facility]) Vital Signs (Past 12 Hours) Vital Signs Temp Pulse Pulse Resp BP Pulse Ox 06/17/21 15:29 36.8 C 79 17 108/72 95 06/17/21 11:34 36.6 C 87 14 108/71 95 06/17/21 07:19 91 H 06/17/21 07:09 36.7 C 82 16 108/76 97 06/17/21 04:23 36.5 C 69 17 111/77 97 (1) CHF (congestive heart failure) Heart failure chronicity: acute Heart failure type: unspecified Qualified Code(s): I50.9 - Heart failure, unspecified
[2021-06-17] MEDS: WARFARIN SOD 10 MG TAB PO SCH (16:35)
[2021-06-17] MEDS: HEPARIN SODIUM/DEXTROSE 25,000 UNITS/500 ML BAG IV SCH (16:39)
[2021-06-17] MEDS: ACETAMINOPHEN 325 MG TAB PO PRN (20:01)
[2021-06-17 23:12] LABS: Partial Thromboplastin Ratio 2.9
[2021-06-17 23:50] LABS: Partial Thromboplastin Time 80.3 Seconds (21.0-31.0)
[2021-06-18 07:29] LABS: Calcium 9.5 mg/dl (8.5-10.1); Creatinine Clr Calc Pharmacy 71.6 ml/min; Est GFR (African American) 103.8 ml/min; Est GFR (Non-African American) 89.5 ml/min; Potassium 4.1 mmol/L (3.5-5.1)
[2021-06-18 07:45] LABS: Partial Thromboplastin Ratio 3.5; Prothrombin Time 39.5 Seconds (9.0-12.0)
[2021-06-18 07:47] LABS: Partial Thromboplastin Time 96.1 Seconds (21.0-31.0)
[2021-06-18] MEDS: SPIRONOLACTONE 12.5 MG TAB PO SCH (08:33)
[2021-06-18] MEDS: FUROSEMIDE 20 MG TAB PO SCH (08:33)
[2021-06-18] MEDS: METOPROLOL SUCC 50MG EXT REL TAB PO SCH (08:34)
[2021-06-18 10:01] LABS: Albumin 3.8 g/dL (3.8-4.8); Alpha 1 Globulin 0.2 g/dL (0.2-0.3); Alpha 2 Globulin 0.6 g/dL (0.5-0.9); Beta-1-Globulin 0.5 g/dL (0.4-0.6); Beta-2-Globulin 0.3 g/dL (0.2-0.5); Free Kappa 10.9 mg/L (3.3-19.4); Free Kappa/Lambda Ratio 0.83 (0.26-1.65); Free Lambda 13.2 mg/L (5.7-26.3); Gamma Globulin 0.8 g/dL (0.8-1.7); Monoclonal Protein Band 1 DNR g/dL (NONE DETECTED); Monoclonal Protein Band 2 DNR g/dL (NONE DETECTED); Monoclonal Protein Band 3 DNR g/dL (NONE DETECTED); Total Protein 6.2 g/dL (6.1-8.1)
[2021-06-18 11:35] LABS: Abnormal Protein Band 1 DNR mg/24 h (NONE DETECTED); Abnormal Protein Band 2 DNR mg/24 h (NONE DETECTED); Abnormal Protein Band 3 DNR mg/24 h (NONE DETECTED); Creatinine, 24 hr Urine 1.41 g/24 h (0.50-2.15); Protein, Urine 24 Hour 340 mg/24 h (<150); Ur Protein/Creatinine Rat mg/g 241 mg/g creat (< OR = 114); Urine Protein/Creatinine Ratio 0.241 (< OR = 0.114)
--- NOTE | 2021-06-18 11:42 | Cardiology Progress Note ---
Date of Service June 18, 2021 Assessment & Plan (1) Infiltrative cardiomyopathy: (2) Atrial fibrillation with RVR: Plan: The patient is ready to be discharged today. Unfortunately, his INR this morning is 4.0. The heparin was discontinued and the warfarin was appropriately held. I think he can still be discharged. I would restart the warfarin on Monday at a lower dose of 2.5 mg daily. He can then follow-up with [facility] with an INR on Monday. I will arrange to see the patient next week. Admission and Anticipated Discharge Date Admission Date: June 14, 2021 Subjective The patient had an uneventful night. He feels well. Review of Systems Review of Systems: Review of Systems: See HPI for pertinent positives. All other 10 point review of systems are negative. Physical Exam 2 Physical Exam: General: no acute distress and stated age Head: normocephalic, no masses, lesions, tenderness or abnormalities Eyes: conjunctiva are pink and non-injected, sclera clear Neck: supple, no adenopathy, no bruits, normal jugular venous pulse, no hepatojugular reflux Chest: normal shape and normal respiratory effort Lungs: clear to auscultation and percussion Cardiac Exam: - irregular rate & rhythm, no murmurs gallops or rubs - normal S1, normal S2 Pulses: 2(+) throughout Abdomen: abdomen soft, non-tender, no abnormal masses and no hepatosplenomegaly Musculoskeletal: no gait disturbance, no joint inflammation, no deforming arthritis Extremities: no edema and no cyanosis Neuro: grossly normal exam Results & Data ([facility]) Vital Signs (Past 12 Hours) Vital Signs Temp Pulse Pulse Resp BP Pulse Ox 06/18/21 08:11 36.9 C 84 17 107/65 94 06/18/21 07:21 114 H Laboratory Results Laboratory Results - last 24 hr 06/14/21 06/15/21 06/17/21 13:57 17:00 12:33 PT INR APTT 82.8 H* PTT Ratio 3.0 Sodium Potassium Chloride Carbon Dioxide Anion Gap BUN Creatinine Est Cr Clr Drug Dosing Est GFR ( Amer) Est GFR (Non-Af Amer) BUN/Creatinine Ratio Glucose Calcium Total Protein (PEP) 6.2 Albumin (PEP) 3.8 Tbpel-6-Skaavkigr 0.2 Gzfhb-6-Sgtcycdhx 0.6 Ulwv-6-Uolhxjlv 0.5 Hhnr-3-Ppftvntl 0.3 Gamma Globulins 0.8 Monoclonal Peak 3 DNR Ser Monoclonl Protein DNR Ser Monoclonal Prot 2 DNR PEP Interpretation SEE NOTE Ur Creatinine 24 Hour 1.41 Ur Total Protein 24 Hr 340 H Protein/Creat Ratio 24h 0.241 H Urine Albumin (%) 81 U Zsgug-2-Lhdlhpgs (%) 4 U Txxaj-2-Czpuzsqf (%) 4 U Beta Globulin (%) 9 U Gamma Globulin (%) 3 U Abnormal Prot Band 1 DNR U Abnormal Prot Band 2 DNR U Abnormal Prot Band 3 DNR Urine PEP Interpret SEE NOTE Free [place] LC, Quant 10.9 Free Lambda LC, Quant 13.2 Free [place]/Lambda Ratio 0.83 06/17/21 06/18/21 06/18/21 22:34 06:02 06:02 PT 39.5 H INR 4.0 H APTT 80.3 H* 96.1 H* PTT Ratio 2.9 3.5 Sodium 136 Potassium 4.1 Chloride 101 Carbon Dioxide 27 Anion Gap 8 BUN 26 H Creatinine 0.93 Est Cr Clr Drug Dosing 71.6 Est GFR ( Amer) 103.8 Est GFR (Non-Af Amer) 89.5 BUN/Creatinine Ratio 28.0 H Glucose 84 Calcium 9.5 Total Protein (PEP) Albumin (PEP) Ugsbw-5-Vlgfzuckn Jegek-8-Jmvvsbdlg Zqpk-7-Jedfrucy Jbkg-9-Jywmwakt Gamma Globulins Monoclonal Peak 3 Ser Monoclonl Protein Ser Monoclonal Prot 2 PEP Interpretation Ur Creatinine 24 Hour Ur Total Protein 24 Hr Protein/Creat Ratio 24h Urine Albumin (%) U Ltaav-8-Nummtpym (%) U Tmmzp-0-Gvkhhyuh (%) U Beta Globulin (%) U Gamma Globulin (%) U Abnormal Prot Band 1 U Abnormal Prot Band 2 U Abnormal Prot Band 3 Urine PEP Interpret Free [place] LC, Quant Free Lambda LC, Quant Free [place]/Lambda Ratio Medications Administered Current Inpatient Medications Acetaminophen (Acetaminophen 325 Mg Tab) 650 mg PO Q4H PRN PRN Reason: Moderate Pain Stop: 07/14/21 16:06 Last Admin: 06/17/21 20:01 Dose: 650 mg Documented by: Furosemide (Furosemide 20 Mg Tab) 20 mg PO BID17 [facility] Stop: 07/17/21 08:59 Last Admin: 06/18/21 08:33 Dose: 20 mg Documented by: Heparin Sodium/Dextrose (Heparin Sodium/Dextrose) 25,000 units in 500 mls @ 0 mls/hr IV .Q0M [facility]; Protocol Stop: 07/15/21 20:29 Last Titration: 06/18/21 07:47 Dose: 0 units/hr, 0 mls/hr Documented by: Menthol (Cough Drop (Sugar Free) Tarah 24 Tarah/1 Box) 1 tarah BUCCAL Q2H PRN PRN Reason: Sore Throat Stop: 07/16/21 14:55 Metoprolol Succinate (Metoprolol Succ 50mg Ext Rel Tab) 50 mg PO BID [facility] Stop: 07/16/21 20:59 Last Admin: 06/18/21 08:34 Dose: 50 mg Documented by: Ondansetron HCl (Ondansetron Inj 2 Mg/Ml 2 Ml Vial) 4 mg IV Q4H PRN PRN Reason: Nausea And Vomiting Stop: 07/14/21 16:06 Spironolactone (Spironolactone 12.5 Mg Tab) 12.5 mg PO BID [facility] Stop: 07/16/21 09:29 Last Admin: 06/18/21 08:33 Dose: 12.5 mg Documented by: Warfarin Sodium (Warfarin Sod 10 Mg Tab) 10 mg PO DAILY@1600 [facility] Stop: 07/16/21 15:59 Last Admin: 06/17/21 16:35 Dose: 10 mg Documented by:
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
== END 2021-06-18 14:49 | disposition home or self-care (01) | DRG 308 ==
LOC: ED 12:16 → SUATTDRO 14:07 → 2S 14:07